=== PATIENT | male | born 1985 | race Caucasian/White ===

== ENCOUNTER 2016-07-25 19:43 | Emergency (ER) | payer OTHER ==
[~2016-07-25] VITALS: Ht 175.3 cm; Wt 115.9 kg
[2016-07-25 19:46] VITALS: BP 145/105; PULSE 89; RESP 18; O2SAT 99
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
[2016-07-25 22:56] VITALS: BP 127/77; PULSE 95; RESP 16; O2SAT 100
== END 2016-07-25 23:10 | disposition home or self-care (01) ==
LOC: SED 19:43
DX: S39.012A Strain of muscle, fascia and tendon of lower back, initial encounter (principal); S16.1XXA Strain of muscle, fascia and tendon at neck level, initial encounter; V49.40XA Driver injured in collision with unspecified motor vehicles in traffic accident, initial encounter; Y93.89 Activity, other specified; Y92.410 Unspecified street and highway as the place of occurrence of the external cause; Y99.8 Other external cause status